=== PATIENT | female | born 1980 | race Caucasian/White ===

== ENCOUNTER 2021-08-11 07:16 | Outpatient (CLI) | payer BC, SELFPAY ==
--- NOTE | ~2021-08-11 | MM_ITS ---
EXAMINATION: MM screening [facility] HISTORY: Screening mammogram TECHNIQUE: Craniocaudal and mediolateral oblique 3-D tomosynthesis images were obtained and synthetic 2-D images were generated. CAD analysis was submitted and interpreted. COMPARISON: No prior mammogram is available for comparison at this institution. BREAST PARENCHYMAL COMPOSITION: The breasts are extremely dense, which lowers the sensitivity of mammography. FINDINGS: There is no evidence of suspicious mass, calcification, or architectural distortion to suggest malignancy in either breast. There has been no suspicious interval change. IMPRESSION: 1. No mammographic evidence of malignancy. 2. Recommend routine screening mammography in one year. BI-RADS Category 1: Negative Reviewed, dictated and finalized at location A.
== END 2021-08-11 07:17 | disposition home or self-care (01) ==
PROVIDERS: PCP Internal Medicine; Visit Provider Family Medicine
DX: Z12.31 Encounter for screening mammogram for malignant neoplasm of breast (principal)
CPT/HCPCS: 77063; 77067

== ENCOUNTER 2023-06-28 08:09 | Emergency (ER) | payer BC, SELFPAY ==
[2023-06-28 08:27] VITALS: BP 110/69; PULSE 106; RESP 18; TEMP 37.2; O2SAT 97
[2023-06-28 08:29] VITALS: BP 110/69; PULSE 106; RESP 18; TEMP 37.2; O2SAT 97
--- NOTE | 2023-06-28 08:44 | ED.GENADULT ---
HPI - General Adult General Chief complaint: Upper Respiratory Infection Stated complaint: sorethroat Time Seen by Provider: 06/28/23 08:30 Source: patient, RN notes reviewed and old records reviewed Mode of arrival: ambulatory Limitations: no limitations History of Present Illness HPI narrative: 42-year-old female to [facility] with complaint sore throat, bilateral ear fullness, decreased appetite, and productive cough for 3 days. Patient has attempted medications without relief. Patient endorses history of Khang Danlos, celiac. Patient able to tolerate fluids by mouth. Related Data Home Medications Medication Instructions Recorded Confirmed cyanocobalamin (vitamin B-12) mcg 06/28/23 1,000 mcg/mL injection solution Allergies Allergy/AdvReac Type Severity Reaction Status Date / Time hydrocodone Allergy Mild Unknown Verified 06/28/23 08:28 codeine Allergy Unknown Unknown Verified 06/28/23 08:28 iodine Allergy Unknown Unknown Verified 06/28/23 08:28 shellfish derived Allergy Unknown Unknown Verified 06/28/23 08:28 gluten Allergy Unknown Verified 06/28/23 08:28 adilia Allergy Unknown Verified 06/28/23 08:28 SHELLFISH Allergy Unknown Uncoded 06/28/23 08:28 Review of Systems Review of Systems: All systems reviewed & are unremarkable except as noted in HPI and below Constitutional: Constitutional: Reports no additional constitutional complaints Eyes: Eyes: Reports no additional eye complaints ENT: Reports as per HPI, Reports otalgia (bilateral fullness), Reports nasal congestion and Reports sore throat Cardiovascular: Cardiovascular: Reports no additional cardiovascular complaints, Denies chest pain and Denies dyspnea Respiratory: Respiratory: Reports no additional respiratory complaints, Reports change in phlegm color, Reports cough ( Productive, yellow to green sputum) and Denies dyspnea Musculoskeletal: Musculoskeletal: Reports no additional musculoskeletal complaints Neurologic: Reports system reviewed and no additional complaints, except as documented Psychiatric: Psychiatric: Reports no additional psychiatric complaints PMFSH Family History Family History (Updated 12/04/13 @ 07:13 by DOCTOR UNKNOWN) Other Family history of arthritis Social History Social History Smoking status: Current every day smoker Alcohol intake: never Comments At the time of my signature, I reviewed and agree with the nursing past medical, surgical, social, and family history. There is no relevant family history pertinent to the patient complaint. Exam Const: General: cooperative, healthy appearing, comfortable, no acute distress, alert and well nourished Nutritional Appearance: well nourished Orientation/consciousness: patient oriented x3 Limitations: no limitations HENMT: Head: normal to inspection Ears: external ears normal and TM abnormal with fluid behind the TM bilateral Face/Nose/Sinus: Normal external nose present, Normal nares present, normal facial exam, No erythema and No edema Face and sinus: normal facial exam, no erythema and no edema Mouth: Yes Normal oral and palatal mucosa present Throat: tonsils normal, uvula midline, posterior oropharynx abnormal erythema and postnasal drainage Eyes: General: appearance normal, both eyes and all related structures Neck: Neck: normal visual inspection, full ROM and no meningeal signs Lymphatic: no lymphadenopathy noted and no lymphedema noted Chest: Chest palpation & inspection: normal inspection of the chest Resp: Effort & Inspection: normal respiratory effort and able to speak in complete sentences Auscultation: clear to auscultation bilaterally Cardio: Jugular venous distension: no JVD Rate: regular rate Rhythm: regular rhythm Back/Spine/Pelvis: Cervical Spine: cervical ROM normal Skin: General skin exam: normal color, no rashes or lesions noted and turgor normal Neuro: General: patient oriented x3, gait normal, moves all extremities
== END 2023-06-28 09:18 | disposition home or self-care (01) ==
PROVIDERS: Emergency Provider Nurse Practitioner Family; PCP Family Medicine
DX: J06.9 Acute upper respiratory infection, unspecified (principal); J01.90 Acute sinusitis, unspecified; Z20.822 Contact with and (suspected) exposure to COVID-19; F17.200 Nicotine dependence, unspecified, uncomplicated; Q79.60 Ehlers-Danlos syndrome, unspecified; K90.0 Celiac disease
CPT/HCPCS: 87426; 87804; 99213; G0463

== ENCOUNTER 2023-06-30 08:04 | Emergency (ER) | payer BC, SELFPAY ==
[2023-06-30 08:29] VITALS: BP 109/69; PULSE 105; RESP 16; TEMP 37.1; O2SAT 100
--- NOTE | 2023-06-30 09:09 | ED.URI ---
HPI - URI/Sore Throat General Chief Complaint: Upper Respiratory Infection Stated Complaint: severe cough,shortness of breath,fever Time Seen by Provider: 06/30/23 08:52 Source: patient, RN notes reviewed and old records reviewed Mode of arrival: ambulatory Limitations: no limitations History of Present Illness HPI Narrative: Patient presents today with a one-week history of sore throat, dry cough, rhinorrhea, congestion, sweats, fever up to 100.5. She also reports decreased sleep due to cough and postnasal drainage. She was seen at [facility] 2 days ago and diagnosed with viral sinusitis. Influenza and COVID were negative at that time. Declined strep swab at that time. Denies shortness of breath. She has been trying [id number] medications such as ibuprofen, Zyrtec, Mucinex DM, Sudafed PE without much relief. Patient has history of celiac disease, Khang-Danlos syndrome, mast cell disease. Boyfriend with whom she lives was recently diagnosed with pneumonia and was put on 14 days of Augmentin. Related Data Home Medications Medication Instructions Recorded Confirmed cyanocobalamin (vitamin B-12) See Rx Instructions .Route .COMPLEX 06/28/23 06/30/23 1,000 mcg/mL injection solution Allergies Allergy/AdvReac Type Severity Reaction Status Date / Time codeine Allergy Severe Anaphylaxis Verified 06/30/23 08:45 hydrocodone Allergy Severe Anaphylaxis Verified 06/30/23 08:45 iodine Allergy Severe Anaphylaxis Verified 06/30/23 08:45 adilia Allergy Severe Anaphylaxis Verified 06/30/23 08:45 shellfish derived Allergy Severe Anaphylaxis Verified 06/30/23 08:45 gluten AdvReac Intermediate Gastrointestinal Verified 06/30/23 08:45 Upset SHELLFISH Allergy Severe Anaphylaxis Uncoded 06/30/23 08:45 Review of Systems Review of Systems: CONSTITUTIONAL: Denies body aches, chills. + fever, sweats EYES: Denies visual changes, redness, or discharge. ENT: Denies rhinorrhea, otalgia.+ congestion, sore throat CARDIOVASCULAR: Denies chest pain, palpitations, or edema. RESPIRATORY: Denies dyspnea.+ cough GASTROINTESTINAL: Denies abdominal pain, nausea, vomiting, or diarrhea. GENITOURINARY: Denies dysuria or hematuria. SKIN: Denies rash, itching, or wounds. MUSCULOSKELETAL: Denies back pain, joint pain, or myalgia. NEUROLOGIC: Denies headache, numbness, tingling, or weakness. PSYCH: Denies depression or anxiety. [facility] Past Medical History Medical History (Updated 06/30/23 @ 09:16 by Maria Dolores Cook, SRINIVASA, ) Celiac disease Khang-Danlos syndrome Mast cell disorder Family History Family History Other Family history of arthritis Social History Social History Smoking status: Current every day smoker Alcohol intake: never Comments At time of signature, I have reviewed and agree with nursing past medical, surgical, social and family history unless otherwise noted. Please see nursing chart for further information. There is no relevant family history pertinent to the presenting complaint Exam Narrative: GENERAL: Mildly ill-appearing, well-nourished, and in no acute distress. HEAD: Normocephalic, atraumatic. EYES: EOMI. No redness or drainage. Conjunctivae normal. ENT: Mucous membranes pink and moist. Nares congested with rhinorrhea. TMs normal bilaterally. Throat mildly erythematous without edema or exudate. Uvula midline. NECK: Normal AROM. Supple. No lymphadenopathy. CHEST: No respiratory distress. Clear to auscultation. HEART: Regular rate and rhythm. No murmur appreciated. EXTREMITIES: Normal range of motion. No edema. SKIN: Warm, dry, no rash. Capillary refill normal. Normal skin turgor. NEURO: No focal deficits. Alert and oriented x3. Gait steady. PSYCH: Normal affect. No signs of depression or anxiety. Course Course Level of Care: Express Care Visit Vital Signs Priscila
== END 2023-06-30 09:19 | disposition home or self-care (01) ==
PROVIDERS: Emergency Provider Nurse Practitioner; PCP Family Medicine
DX: J06.9 Acute upper respiratory infection, unspecified (principal); F17.200 Nicotine dependence, unspecified, uncomplicated; K90.0 Celiac disease; Q79.60 Ehlers-Danlos syndrome, unspecified
CPT/HCPCS: 87081; 87880; 99213; G0463